=== PATIENT | female | born 1950 | race Caucasian/White ===

== ENCOUNTER 2016-11-18 08:33 | Emergency (ER) | payer BC ==
[~2016-11-18] VITALS: Ht 154.9 cm; Wt 70.0 kg
[~2016-11-18 08:33] MED LIST: AMLODIPINE5 MG PO; CLOPIDOGREL75 MG PO; HYDRALAZINE25 MG PO; HYDROCO/APAP1 TA9 PO; LOSARTAN/HCT1 TA2 PO; PAROXETINE20 MG PO; PRAVACHOL20 MG PO; TRAMADOL HCL50 MG PO; VITAMIN D35000 UNIT PO
[2016-11-18 09:00] LABS: HEMATOCRIT 42.7 % (37.0-47.0); HEMOGLOBIN 14.4 g/dl (12.0-16.0); IMMATURE GRANULOCYTES 0.4 % (0.0-1.0); MEAN CORPUSCULAR HGB 32.4 pG CALC (26.0-32.0); MEAN CORPUSCULAR HGB CONC 33.7 g/L CALC (32.0-36.0); NEUT# 9.41 thou/uL (2.00-7.15); RED BLOOD COUNT 4.45 mill/uL (4.20-5.60)
[2016-11-18 09:15] LABS: ALBUMIN 4.4 g/dL (3.2-5.0); ALKALINE PHOSPHATASE 74 u/l (38-126); ANION GAP 16 (6-22 (CALC)); BILIRUBIN, TOTAL 0.7 mg/dL (0.0-1.4); BUN 22 mg/dL (8-23); BUN/CREATININE RATIO 19 (12-20 (CALC)); CALCIUM 9.4 mg/dL (8.4-10.2); CARBON DIOXIDE 23 mmol/l (22-30); CHLORIDE 104 mmol/l (95-108); CREATININE 1.1 mg/dL (0.5-1.0); GFR 50 ML/MIN (>=60 (CALC)); GFR FOR AFR.AMER. > 60 ML/MIN (>=60 (CALC)); GLUCOSE 197 mg/dL (82-115); POTASSIUM 3.7 mmol/l (3.5-5.1); SGOT/AST 41 u/l (9-36); SGPT/ALT 30 u/l (11-66); SODIUM 140 mmol/l (137-146); TOTAL PROTEIN 7.7 g/dL (6.3-8.2)
[2016-11-18 09:25] LABS: MYOGLOBIN 44 ng/mL (0 - 62)
[2016-11-18 10:23] LABS: URINE BILIRUBIN - DIPSTICK NEGATIVE (NEGATIVE); URINE BLOOD DIPSTICK NEGATIVE (NEGATIVE); URINE CLARITY CLEAR; URINE COLOR YELLOW; URINE GLUCOSE - DIPSTICK NEGATIVE (NEGATIVE); URINE KETONE NEGATIVE (NEGATIVE); URINE NITRITE - DIPSTICK NEGATIVE (Negative); URINE PH 6.5 (4.5-8.0); URINE PROTEIN - DIPSTICK 30 mg/dL (NEG-TRACE); URINE SPECIFIC GRAVITY 1.015; URINE UROBILINOGEN - DIPSTICK 0.2 E.U./dL (0.2)
[2016-11-18 10:27] LABS: URINE LEUK ESTERASE SMALL (NEGATIVE)
[2016-11-18 10:38] LABS: URINE SQUAMOUS EPITHELIAL CELL FEW EPI/hpf (0-FEW)
[2016-11-18 11:12] VITALS: BP 161/67
[2016-11-18] MEDS ORDERED: BACTRIM DS1 TAB PO (11:15)
== END 2016-11-18 11:24 | disposition left against medical advice (07) | DRG 313 ==
LOC: ED 08:33
PROVIDERS: Emergency Medicine
DX: R07.9 Chest pain, unspecified (principal); I10 Essential (primary) hypertension; N39.0 Urinary tract infection, site not specified; M19.90 Unspecified osteoarthritis, unspecified site; J44.9 Chronic obstructive pulmonary disease, unspecified; E78.00 Pure hypercholesterolemia, unspecified; Z86.73 Personal history of transient ischemic attack (TIA), and cerebral infarction without residual deficits; Z91.19 Patient's noncompliance with other medical treatment and regimen

== ENCOUNTER 2017-11-26 14:52 | Inpatient (IN) | payer BC, MEDICARE ==
[~2017-11-26] VITALS: Ht 152.4 cm; Wt 71.7 kg
[~2017-11-26 14:52] MED LIST changes: +AMITRIPTYLIN25 MG PO; +BACTRIM DS1 TAB PO; +PAROXETINE40 MG PO; +PRAVASTATIN SOD40 MG PO; +TRAMADOL HYDROC50 MG PO; +VITAMIN D32000 UNIT PO
[2017-11-29] VITALS (9 sets, daily range): BP systolic 116–150; BP diastolic 47–86
--- NOTE | 2017-11-29 11:15 | NUR ---
PT ARRIVED TO FLOOR VIA HOSPITAL BED IN STABLE CONDITION ACCOMPANIED BY OR STAFF;INTRODUCED SELF TO PT/FAMILY AND POC DISCUSSED;VS OBTAINED AND ASSESSMENT COMPLETED;PT ALERT BUT VERY DROWSY AT THIS TIME,WAKES TO VERBAL STIMULI;RESPIRATIONS EVEN AND UNLABORED,SHALLOW ON OXYGEN @ 3L VIA NC PER MD ORDERS;ENCOURAGED DEEP BREATHING;I.S. AT BEDSIDE AND GOAL SET TO 1500,PT INSTRUCTED TO USE 10X PER HOUR WHILE AWAKE;PT DEMONSTRATED USE;ABDOMEN SOFT ON PALPATION AND HYPOACTIVE IN ALL 4 QUADRANTS;STRONG PEDAL PULSES WITH LESS THAN 3SEC CAP REFILL;SCD PLACED TO LEFT LEG;DRESSING TO RIGHT KNEE CDI AND ICE PACKS PROVIDED;RIGHT SIDED WEAKNESS NOTED FROM HX OF STROKE 2 YEARS AGO;#20G TO LEFT HAND INFUSING NS @ 100ML/HR,SITE APPEARS HEALTHY;LAST BM 11/28/17; PT DENIES ANY CURRENT NEEDS;ICE CHIPS PROVIDED PER REQUEST;SAFETY PRECAUTIONS REINFORCED WITH BED IN THE LOWEST POSITION;CALL LIGHT IN REACH;WILL CONTINUE TO MONITOR
--- NOTE | 2017-11-29 12:50 | NUR ---
PT MEDICATED WITH PERCOCET 10/325MG 2 COMBO PO FOR RIGHT KNEE PAIN RATING 5/10 ON THE PAIN SCALE,WILL MONITOR FOR EFFECTIVENESS
--- NOTE | 2017-11-29 15:05 | NUR ---
PT COMPLAINS OF RIGHT KNEE PAIN RATING 10/10 ON THE PAIN SCALE;PT MEDICATED WITH DILAUDID 1MG IVP AT THIS TIME;RE-POSITIONED,ICE PACKS PROVIDED AND KNEE ELEVATED;IV SITE PATENT INFUSING @ 100ML/HR;I.S. ENCOURAGED AND PT VERBALIZES UNDERSTANDING;CALL LIGHT IN REACH;WILL CONTINUE TO MONITOR
--- NOTE | 2017-11-29 15:20 | NUR ---
PT MEDICATED WITH ZOFRAN 4MG IVP FOR NAUSEA,EMESIS BAGS PROVIDED;WILL CONTINUE [facility]
--- NOTE | 2017-11-29 20:00 | NUR ---
PATIENT RESTING IN BED AT THIS TIME-AWAKE ALERT AND ORIENTED. PATIENT WITH IV SITE TO LEFT HAND WITH IVF NS PATENT AND INFUSING AT 100CC/HR. SITE APPEARS HEALTHY AT THIS TIME. RIGHT KNEE DRESSING INTACT AND SECURED WITH RAMO WRAP. ENCOURAGED USE OF IS Q1H WHILE AWAKE. ABLE TO DEMONSTRATE CORRECT USE OF DEVICE.USING ICE PACK TO RIGHT INT INTERMITANTLY. MEDICATED FOR POST-OP PAIN WITH DILAUDID 1MG IVP WITH GOOD EFFECT. SAFETY PRECAUTIONS REINFORCED. CALL LIGHT IN REACH. WILL CONT TO MONITOR.
--- NOTE | 2017-11-29 23:00 | NUR ---
PATIENT HAS BEEN UNABLE TO VOID SINCE COMING BACK FROM THE OR. ASSISTED PATIENT OOB TO THE BSC AND STILL UNABLE TO VOID. BACK TO BED AND #16 SERBIAN GUERRA INSERTED AND DRAINING CLEAR AMA URINE. MEDICATED FOR POST-OP PAIN WITH DILAUDID. SAFETY PRECAUTIONS REINFORCED. CALL LIGHT IN REACH. WILL CONT TO MONITOR.
--- NOTE | 2017-11-30 03:11 | NUR ---
PATIENT RESTING IN BED-C/O SEVERE POST-OP RIGHT KNEE PAIN. MEDICATED WITH DILAUDID 1MG IVP FOR PAIN. ANCEF INFUSING ORDERED. CALL LIGHT IN REACH. WILL CONT TO MONITOR,
[2017-11-30 05:02] VITALS: BP 152/70
[2017-11-30 05:32] LABS: IMMATURE GRANULOCYTES 0.5 % (0.0-1.0); MEAN CELL VOLUME 101.5 fL CALC (80.0-100.0); MEAN CORPUSCULAR HGB 32.3 pG CALC (26.0-32.0); MEAN CORPUSCULAR HGB CONC 31.8 g/L CALC (32.0-36.0); NEUT# 12.69 thou/uL (2.00-7.15); RED BLOOD COUNT 3.28 mill/uL (4.20-5.60); RED CELL DISTRI WIDTH 12.6 % (11.5-15.5)
[2017-11-30 05:48] LABS: ANION GAP 16 (6-22 (CALC)); BUN 18 mg/dL (8-23); BUN/CREATININE RATIO 23 (12-20 (CALC)); CARBON DIOXIDE 25 mmol/l (22-30); CHLORIDE 102 mmol/l (95-108); CREATININE 0.8 mg/dL (0.5-1.0); GFR > 60 ML/MIN (>=60 (CALC)); GFR FOR AFR.AMER. > 60 ML/MIN (>=60 (CALC)); MAGNESIUM 1.7 mg/dL (1.6-2.3); POTASSIUM 3.8 mmol/l (3.5-5.1); SODIUM 139 mmol/l (137-146)
[2017-11-30 05:49] LABS: HEMATOCRIT 33.3 % (37.0-47.0); HEMOGLOBIN 10.6 g/dl (12.0-16.0)
--- NOTE | 2017-11-30 07:35 | NUR ---
REPORT RECEIVED FROM HERMINIA DE LA CRUZ;INTRODUCED SELF TO PT AND POC DISCUSSED;PT COMPLAINS OF RIGHT KNEE PAIN AND REQUESTS PAIN MEDICATION;PT TO BE MEDICATED ACCORDING TO MD ORDERS;RESPIRATIONS REMAIN EVEN AND UNLABORED ON O2 @ 3L VIA NC;FALL PRECAUTIONS IN PLACE WITH CALL LIGHT IN REACH;WILL CONTINUE TO MONITOR
--- NOTE | 2017-11-30 08:00 | NUR ---
PT RESTING IN SEMI FOWLERS POSITION COMPLAINING OF RIGHT KNEE PAIN RATING 9/10 ON THE PAIN SCALE AND REQUESTING PAIN MEDICATION;PT MEDICATED WITH PRN PERCOCET 10/325MG PO 2 COMBO,WILL MONITOR FOR EFFECT;VS OBTAINED AND ASSESSMENT COMPLETED;RESPIRATIONS EVEN AND UNLABORED ON RA,WHEEZES NOTED;ABDOMEN SOFT ON PALPATION AND HYPOACTIVE IN ALL 4 QUADRANTS;DRESSING TO RIGHT KNEE REMAINS CDI,ICE PACKS ENCOURAGED;I.S. AT BEDSIDE AND GOAL SET TO 1500;#20G TO LEFT HAND INFUSING NS @ 100ML/HR,SITE APPEARS HEALTHY;GUERRA CATHETER PATENT DRAINING YELLOW URINE,LEG STRAP IN PLACE;ALL SAFETY PRECAUTIONS REINFORCED WITH BED IN THE LOWEST POSITION;ENCOURAGED TO CALL FOR ASSISTANCE IF NEEDED;CALL LIGHT IN REACH;WILL CONTINUE TO MONITOR
[2017-11-30 08:04] VITALS: BP 175/74
--- NOTE | 2017-11-30 10:56 | NUR ---
PATIENT SEEN FOR AM TX. SHE IS REQUESTING PAIN INJECTION DUE TO 9/10 PAIN. NSG REPORTS HAVING JUST MEDICATED PATIENT WITH ORAL MEDS. PATIENT ENCOURAGED TO PARTICIPATE IN THERAPY AND GET OOB TO CHAIR. PATIENT ABLE TO MOVE LATERALLY IN BED WITH LIGHT SUPPORT AT R LE. SUPINE TO SIT WITH MIN A AT R LEG AND SUPERVISOR PIGMENT MAKING OF 1. SIT TO STAND WITH V.C.'S TO STANDARD WALKER. PATIENT AMB WBAT R LE WITH IMPROVED STEP LENGTH AND INCREASED TOLERANCE TO WB'G R LE 8 FEET TO CHAIR. ABLE TO SCOOT HERSELF BACK IN CHAIR WITH LEFT LE AND BILAT UE'S. INSTRUCTED IN AROM OF KNEE IN SITTING APPROX 20-70 DEGREES FLXN ACTIVELY. LEGS ELEVATED AND PATIENT INSTRUCTED IN QUAD SETS AND ANKLE PUMPS. ENCOURAGED TO CONSIDER SHORT TERM INPATIENT REHAB SHE LIVES ALONE AND WISHES TO TRAVEL [facility].
--- NOTE | 2017-11-30 11:15 | NUR ---
PT REPORTS PERCOCET TO BE UNEFFECTIVE TOWARDS PAIN CONTROL AND NEW ORDER RECEIVED;PT MEDICATED WITH PRN DILAUDID 2MG PO AT THIS TIME,WILL CONTINUE TO MONITOR
[2017-11-30 12:00] VITALS: BP 139/46
--- NOTE | 2017-11-30 12:20 | NUR ---
PT APPEARS TO BE SLEEPING IN RECLINER;NO S/S OF DISTRESS NOTED;RESPIRATIONS APPEAR EVEN AND UNLABORED ON RA;IV SITE PATENT INFUSING @ 100ML/HR;FALL PRECAUTIONS IN PLACE WITH CALL LIGHT IN REACH;WILL CONTINUE TO MONITOR
--- NOTE | 2017-11-30 13:10 | NUR ---
PT REPORTS NO PAIN RELIEF TO RIGHT KNEE FROM DILAUDID 2MG PO,JESSIE FIGUEROA,ANRP NOTIFIED
[2017-11-30 13:17] LABS: URINE BILIRUBIN - DIPSTICK NEGATIVE (NEGATIVE); URINE BLOOD DIPSTICK LARGE (NEGATIVE); URINE GLUCOSE - DIPSTICK NEGATIVE (NEGATIVE); URINE KETONE NEGATIVE (NEGATIVE); URINE LEUK ESTERASE NEGATIVE (NEGATIVE); URINE NITRITE - DIPSTICK NEGATIVE (Negative); URINE PROTEIN - DIPSTICK NEGATIVE (NEG-TRACE); URINE SPECIFIC GRAVITY 1.015; URINE UROBILINOGEN - DIPSTICK 0.2 E.U./dL (0.2)
[2017-11-30 13:18] LABS: URINE CLARITY HAZY; URINE COLOR DK. YELLOW
[2017-11-30 13:19] LABS: URINE EPITHELIAL CELLS FEW EPI/hpf (0-FEW); URINE RBC 25-50 RBC/hpf (0-5)
--- NOTE | 2017-11-30 14:35 | NUR ---
Pt seen for ther ex and mobility. She was resting in bed but did cooperate with treatment. A/AROM to RLE in supine and sitting. Pt moved supine to sit with SBA, min assist with RLE only. Sit to stand with CGA. Pt ambulated with standard walker 1x 30' with CGA, gait belt in place and non skid socks on. Sit to supine with assist of RLE. Pt was positioned correctly in bed with call bah in reach, heels off loaded. Pt encouraged to do AROM as tolerated in bed and when sitting.
[2017-11-30 14:37] VITALS: BP 154/59
--- NOTE | 2017-11-30 14:40 | NUR ---
PT RESTING IN SEMI FOWLERS POSITION COMPLAINING OF RIGHT KNEE PAIN AND BURNING (9/10) ON THE PAIN SCALE;PT MEDICATED WITH TORADOL 15MG IVP AND DRESSING REMOVED PER REQUEST,PT TOLERATED WELL;IV SITE PATENT INFUSING @ 100ML/HR;GUERRA CATHETER PATENT DRAINING TO GRAVITY;ENCOURAGED TO CALL FOR ASSISTANCE IF NEEDED;CALL LIGHT IN REACH;WILL CONTINUE TO MONITOR
[2017-11-30 16:00] VITALS: BP 148/70
--- NOTE | 2017-11-30 16:00 | NUR ---
PT CURRENT TEMP 100.0,BLANKETS REMOVED AND AC LOWERED;WILL CONTINUE TO MONITOR
--- NOTE | 2017-11-30 17:05 | NUR ---
PT MEDICATED WITH DILAUDID 4MG PO FOR RIGHT KNEE PAIN RATING 9/10 ON THE PAIN SCALE,WILL MONITOR FOR EFFECT
--- NOTE | 2017-11-30 17:15 | NUR ---
PT MEDICATED WITH PRN TYLENOL 650MG PO FOR TEMP OF 100.1,WILL MONITOR FOR EFFECTIVENESS
--- NOTE | 2017-11-30 19:30 | NUR ---
PATIENT RESTING IN BED WITH O2 VIA NASAL CANNULA IN PLACE AT 2LPM. PATIENT AWAKE ALERT WITH SOME POST-OP PAIN TO RIGHT KNEE. RIGHT KNEE INCISION IS INTACT INDIRA, WELL APPROXIMATED. CONT TO USE INTERMITTANT ICE PACKS FOR SWELLING AND COMFORT. IV SITE TO LEFT HAND INTACT WITH IVF NS PATENT AND INFUSING AT 100CC/HR. SITE APPEARS HEALTHY AT THIS TIME. GUERRA PATENT AND DRAINING YELLOW URINE. STILL NOT EATING MUCH-TAKING SIPS OF FLUIDS AND ICE CHIPS. SAFETY PRECAUTIONS REINFORCED. CALL LIGHT IN REACH. WILL CONT TO MONITOR.
[2017-11-30 20:21] VITALS: BP 142/52
--- NOTE | 2017-12-01 01:20 | NUR ---
PATIENT APPEARS SLEEPING AT THIS TIME MWITH EYES CLOSED AND O2 VIA NASAL CANNULA IN PLACE, IVF PATENT AND INFUSING AT 100CC/HR. PATIENT STILL NOT EATING OR DRINKING MUCH. GUERRA PATENT AND DRAINING YELLOW URINE. CALL LIGHT IN REACH. WILL CONT TO MONITOR.
[2017-12-01 02:56] VITALS: BP 135/63
[2017-12-01 04:59] VITALS: BP 134/64
[2017-12-01 05:01] LABS: ANION GAP 13 (6-22 (CALC)); BUN 13 mg/dL (8-23); BUN/CREATININE RATIO 16 (12-20 (CALC)); CARBON DIOXIDE 25 mmol/l (22-30); CHLORIDE 104 mmol/l (95-108); CREATININE 0.8 mg/dL (0.5-1.0); GFR > 60 ML/MIN (>=60 (CALC)); GFR FOR AFR.AMER. > 60 ML/MIN (>=60 (CALC)); MAGNESIUM 1.9 mg/dL (1.6-2.3); POTASSIUM 3.5 mmol/l (3.5-5.1); SODIUM 138 mmol/l (137-146)
[2017-12-01 05:26] LABS: HEMOGLOBIN 9.4 g/dl (12.0-16.0); IMMATURE GRANULOCYTES 0.4 % (0.0-1.0); MEAN CELL VOLUME 101.4 fL CALC (80.0-100.0); MEAN CORPUSCULAR HGB 32.9 pG CALC (26.0-32.0); MEAN CORPUSCULAR HGB CONC 32.4 g/L CALC (32.0-36.0); NEUT# 8.36 thou/uL (2.00-7.15); RED BLOOD COUNT 2.86 mill/uL (4.20-5.60); RED CELL DISTRI WIDTH 12.5 % (11.5-15.5)
--- NOTE | 2017-12-01 05:31 | NUR ---
APPEARS SLEEPING AT THIS TIME. O2 VIA N STEPHY CANNULA IN PLACE. IVF PATENT ST 100CC/HR. GUERRA PATENT AND DRAINING YELLOW URINE. CALL LIGHT IN REACH. WILL CONT TO MONITOR.
--- NOTE | 2017-12-01 06:19 | NUR ---
CHARLIE BOTELLO D/C'ED WITHOUT ANY DIFFICULTY. NO COMPLAINTS AT THIS TIME. CALL LIGHT IN REACH. MUCH BETTER PAIN CONTROL TONIGHT. WILL CONT TO MONITOR.
--- NOTE | 2017-12-01 07:00 | NUR ---
REPORT RECEIVED SHENNY. PT IS RESTING IN BED WITH NO S/S OF DISTRESS NOTED. PT DENIES NEEDS AT THIS TIME. CALL LIGHT IN REACH.
--- NOTE | 2017-12-01 07:00 | NUR ---
BEDSIDE REPORT RECEIVED BY INDIO. PT IS RESTING IN BED WITH NO NO S/S OF DISTRESS NOTED. CALL LIGHT IN REACH.
[2017-12-01 08:00] VITALS: BP 146/69
--- NOTE | 2017-12-01 08:00 | NUR ---
ASSESSMENT DONE . RESPS EVEN AND UNLABORED. PT DENIES PAIN AT THIS TIME. #20 LH THAT APPEARS HEALTHY. POC DISCUSSES . SAFETY PRECAUTIONS REINFORCED AND CALL LIGHT IN REACH.
--- NOTE | 2017-12-01 09:53 | NUR ---
Pt. found resting in bed, treatment plan explained. Pt. agreeable to participate in gait training, gait belt and non skid socks applied prior to doing so. Supine to sit with min. assist x1 to R LE. Sit to stand done with v.c.'s for UE push off from bed and with CGA x1. Pt. ambulated x 30 ft. using standard walker and with CGA x1. Pt. walked toward recliner and recalled to use UE's to slowly lower onto recliner. LE's elevated, call light reviewed and left within reach. Pt. without questions or concerns.
[2017-12-01 12:00] VITALS: BP 126/62
--- NOTE | 2017-12-01 12:00 | NUR ---
PT IS EATING LUNCH WITH NO S/S OF DISTRESS NOTED. PT DENIES NEEDS AT THIS TIME. CALL LIGHT IN REACH.
--- NOTE | 2017-12-01 13:54 | NUR ---
PM TX: PT WAS SEEN RESTING SUPINE ON BED. DID SUPINE TO SIT INDEPENDENTLY, LIFTED R LE OFF ON EDGE OF BED. PT THEN AMBULATED BEDSIDE WITH A WALKER AND CGA ~20 FT. PT SAT ON THE RECLINER THEN STOOD UP WITH VERBAL CUEING. PT THEN RETURNED TO BED IN SUPINE WITH MIN A ON LIFTING R LE BACK ON BED. PT C/O PAIN ON R KNEE UPON MOVEMENT. PT WAS ABLE TO REPOSITION SELF ON BED INDEPENDENTLY. NO ADVERSE RXNS NOTED OR REPORTED AT THE END OF TX.
[2017-12-01 16:38] VITALS: BP 169/59
--- NOTE | 2017-12-01 19:20 | NUR ---
OOB TO BSC WITH MINIMAL ASSISTNACE USING WALKER, VOIDING CLEAR YELLOW URINE THEN BACK TO BED. POST OP RIGHT KNEE REPLACEMENT. RIGHT KNEE DERMABOND OPEN TO AIR, ADMITS PAIN 3/10 DENIES NEED FOR PAIN MEDS. A/O X3, RESPIRATIONS EVEN AND UNLABORED. NS INFUSING TO LH AT 50CC/HR. PO FLUIDS IN REACH, ENCOURAGED TO USE CALL LIGHT FOR ASSISTANCE, TEACHING DONE ON USING INCENTIVE SPIROMETER, DEMONSTRATES ABILITY TO USE IT. WILL CONTINUE TO MONITOR.
[2017-12-01 19:40] VITALS: BP 147/93
--- NOTE | 2017-12-01 23:57 | NUR ---
TEMP 100.0, TYLENOL 650MG PO GIVEN AT THIS TIME, WILL CONTINUE TO MONITOR.
--- NOTE | 2017-12-02 01:00 | NUR ---
TEMP 99.0
--- NOTE | 2017-12-02 04:40 | NUR ---
MORNING BLOOD WORK DRAWN BY CALENDER TENDER, TOLERATED WELL.
[2017-12-02 05:07] VITALS: BP 133/68
[2017-12-02 05:32] LABS: HEMATOCRIT 24.3 % (37.0-47.0); HEMOGLOBIN 7.9 g/dl (12.0-16.0)
[2017-12-02 05:50] LABS: ANION GAP 14 (6-22 (CALC)); BUN 18 mg/dL (8-23); BUN/CREATININE RATIO 25 (12-20 (CALC)); CARBON DIOXIDE 23 mmol/l (22-30); CHLORIDE 107 mmol/l (95-108); CREATININE 0.7 mg/dL (0.5-1.0); GFR > 60 ML/MIN (>=60 (CALC)); GFR FOR AFR.AMER. > 60 ML/MIN (>=60 (CALC)); POTASSIUM 3.4 mmol/l (3.5-5.1); SODIUM 140 mmol/l (137-146)
--- NOTE | 2017-12-02 07:01 | NUR ---
BEDSIDE REPORT RECEIVED BY HARRIS. PT IS RESTING IN BED AND DENIES NEEDS AT THIS TIME. CALL LIGHT IN REACH.
--- NOTE | 2017-12-02 08:00 | NUR ---
ASSESSMENT DONE RESPS EVEN AND UNLABORED. PT DENIES PAIN AT AT THIS TIME. RIGHT KNEE IS ICDI. PT DENIES NEEDS AT THIS TIME. CALL LIGHT IN REACH. SAFETY PRECAUTIONS REINFORCED.
[2017-12-02 08:45] VITALS: BP 148/59
--- NOTE | 2017-12-02 09:10 | NUR ---
PT DID SUPINE TO SITTING WITH MOD ASSIST, ALSO PROVIDED VERBAL CUES TO SLIDE, SCOOT AND HOLD ONTO THE BED RAIL TO PULL SELF UP. PT THEN PERFORMED AAROM EX. ON B UE AND LE. PASSIVE STRETCHING WAS DONE TO R UE AND LE WHILE IN SITTING POSITION. PT C/O PAIN ALL OVER HER BODY AND WAS REQUESTING FOR PAIN MEDS. NURSE TOLD HER THAT SHE JUST HAD IT NOT A WHILE AGO. PT WAS THEN ASSISTED BACK TO SUPINE ON BED WITH MOD A AND VC, PLACED 2 PILLOWS UNDER R LE. LEFT PT W/ CALL BROWN BESIDE HER. NO ADVERSE RXNS NOTED OR REPORTED.
--- NOTE | 2017-12-02 09:19 | NUR ---
PT PERFORMED SIT TO STAND INDEPENDENTLY. ASSISTED FROM BED TO BATHROOM WITH ROLLING WALKER AND SBA. PT THEN AMBULATED ALONG THE HALLWAY ~70FT. X 2 WITH RW AND SBA. PT REQUESTED TO BE SEATED IN THE RECLINER. ELEVATED LEG REST WITH PILLOW UNDER HER LEGS. CALL BROWN BESIDE PT. NO ADVERSE RXNS NOTED OR REPORTED AT THE END OF TX.
--- NOTE | 2017-12-02 10:05 | NUR ---
PT WAS ASSISTED TO SHOWER WITH WALKER. PT AMBULATED VERY WELL. PT BATHED SELF IN SHOWER. AIRCRAFT SHEET METAL MECHANIC CHANGED BED AND CHAIR WHILE PT IN SHOWER. PT TOLERATED THE SHOWER WELL. PT THEN AMBULATED BACK TO CHAIR WITH ASSISTANCE FROM WALKER. AIRCRAFT SHEET METAL MECHANIC WAS STAND BY ASSIST WHILE WALKING. PT WAS ASKED IF AIRCRAFT SHEET METAL MECHANIC COULD GET HER ANYTHING AT THIS TIME. AIRCRAFT SHEET METAL MECHANIC BROUGHT ICE FOR HER KNEE. PLACED ON KNEE AT THIS TIME. NO COMPLAINTS. PT WAS ADVISED TO CALL FOR ANYTHING SHE NEEDED. PT UNDERSTOOD. CALL BROWN IN REACH.
[2017-12-02 11:35] VITALS: BP 146/61
--- NOTE | 2017-12-02 12:00 | NUR ---
PT IS SITTING IN RECLINER EATING HER LUNCH WITH NO S/S OF DISTRESS NOTED. PT DENIES NEEDS AT THIS TIME CALL LIGHT IN REACH.
[2017-12-02] MEDS ORDERED: SURFAK240 MG/CAP PO (12:34)
[2017-12-02] MEDS ORDERED: GLYCOLAX3350 N1 PO (12:34)
[2017-12-02] MEDS ORDERED: PERCOCET 10/31 COMBO PO (12:34)
[2017-12-02] MEDS ORDERED: ASPIRIN 8181 MG PO (12:34)
--- NOTE | 2017-12-02 13:28 | NUR ---
PT AMBULATED FROM CHAIR TO BATHROOM WITH RW AND SBA. THEN AMBULATED ALONG THE HALLWAY ~60 FT. X 2 WITH RW AND SBA TO ENSURE SAFETY. PT APPEARED STABLE DURING THE AMBULATION. STATES ONLY MILD DISCOMFORT ON R KNEE. PT RETURNED TO BED IN SUPINE WITH MIN A ON LIFTING R LE UP TO BED. NO ADVERSE RXNS NOTED OR REPORTED AT THE END OF TX.
--- NOTE | 2017-12-02 14:41 | NUR ---
Discharge instructions given. Patient verbalizes understanding of same. Discharged in stable condition via Wheelchair to Home with volunteer. All belongings sent with pt.
== END 2017-12-02 14:41 | disposition home health service (06) | DRG 470 ==
LOC: MS2 11-29 06:04
PROVIDERS: Nurse Practitioner Family; ADMIT Orthopaedic Surgery; ATTEND Orthopaedic Surgery
PROC: 0SRC0J9 Replacement of Right Knee Joint with Synthetic Substitute, Cemented, Open Approach (ICD-10-PCS; principal; 2017-11-29)
DX: M17.11 Unilateral primary osteoarthritis, right knee (principal); J44.9 Chronic obstructive pulmonary disease, unspecified; E78.5 Hyperlipidemia, unspecified; F17.210 Nicotine dependence, cigarettes, uncomplicated; D50.9 Iron deficiency anemia, unspecified; E87.6 Hypokalemia; I10 Essential (primary) hypertension; Z86.73 Personal history of transient ischemic attack (TIA), and cerebral infarction without residual deficits
CPT/HCPCS: J1756

== ENCOUNTER → 2018-03-31 | Outpatient (REF) | payer BC, MEDICARE ==
[~2018-03-31] MED LIST changes: +ASPIRIN 8181 MG PO; +GLYCOLAX3350 N1 PO; +PERCOCET 10/31 COMBO PO; +SURFAK240 MG/CAP PO
== END | disposition home or self-care (01) | DRG 951 ==
LOC: MAMMO 13:57
PROVIDERS: ATTEND Nurse Practitioner
DX: Z12.31 Encounter for screening mammogram for malignant neoplasm of breast (principal); N95.1 Menopausal and female climacteric states

== ENCOUNTER 2024-02-25 10:37 | Day surgery (SDC) | payer BC, MEDICARE ==
[~2024-02-25] VITALS: Ht 154.9 cm; Wt 66.2 kg
[~2024-02-25 10:37] MED LIST changes: +CLEOCIN150 MG PO; +JANUVIA50 MG PO; +LIPITOR40 M1 PO; +MOBIC15 MG PO; +OMEPRAZOLE DR20 MG PO
[2024-02-25] MEDS ORDERED: SODIUM CHLORIDE 0.9% 1,000 ML IV ONE (11:20)
[2024-02-25] MEDS ORDERED: FAMOTIDINE 10MG/ML 2ML SDV IV ONE (11:20)
[2024-02-25 12:40] VITALS: BP 175/77
[2024-02-25] MEDS ORDERED: GLYCOPYRROLATE 0.2 MG/ML IV ONE (15:06)
[2024-02-25] MEDS ORDERED: PROPOFOL 200 MG/20 ML VIAL IV ONE (15:06)
[2024-02-25] MEDS ORDERED: LABETALOL HCL 100 MG/20 ML VIAL IV ONE (15:06)
[2024-02-25] MEDS ORDERED: LIDOCAINE HCL 2% 2ML SDV IV ONE (15:06)
== END 2024-02-25 12:59 | disposition home or self-care (01) | DRG 379 ==
LOC: ENDO 10:37 → ORM 11:45 → ENDO 12:59 → ORM 13:00 → ENDO 14:15 → ORM 14:15
PROVIDERS: ATTEND Internal Medicine Gastroenterology
PROC: 0DBK8ZX Excision of Ascending Colon, Via Natural or Artificial Opening Endoscopic, Diagnostic (ICD-10-PCS; principal; 2024-02-25)
PROC: 0DBL8ZX Excision of Transverse Colon, Via Natural or Artificial Opening Endoscopic, Diagnostic (ICD-10-PCS; 2024-02-25)
PROC: 0DBH8ZX Excision of Cecum, Via Natural or Artificial Opening Endoscopic, Diagnostic (ICD-10-PCS; 2024-02-25)
PROC: 0DB98ZX Excision of Duodenum, Via Natural or Artificial Opening Endoscopic, Diagnostic (ICD-10-PCS; 2024-02-25)
PROC: 0DB78ZX Excision of Stomach, Pylorus, Via Natural or Artificial Opening Endoscopic, Diagnostic (ICD-10-PCS; 2024-02-25)
PROC: 0DB48ZX Excision of Esophagogastric Junction, Via Natural or Artificial Opening Endoscopic, Diagnostic (ICD-10-PCS; 2024-02-25)
DX: K29.51 Unspecified chronic gastritis with bleeding (principal); K29.81 Duodenitis with bleeding; K44.9 Diaphragmatic hernia without obstruction or gangrene; K22.2 Esophageal obstruction; D12.2 Benign neoplasm of ascending colon; D12.0 Benign neoplasm of cecum; D12.3 Benign neoplasm of transverse colon; K64.8 Other hemorrhoids; K21.9 Gastro-esophageal reflux disease without esophagitis; K59.09 Other constipation; I10 Essential (primary) hypertension; D64.9 Anemia, unspecified; F17.210 Nicotine dependence, cigarettes, uncomplicated; Z86.010 Personal history of colon polyps

== ENCOUNTER 2024-06-26 10:48 | Day surgery (SDC) | payer BC, MEDICARE ==
[~2024-06-26] VITALS: Ht 154.9 cm; Wt 66.2 kg
[~2024-06-26 10:48] MED LIST changes: +APRESOLINE50 MG PO; -HYDRALAZINE25 MG PO; +PROTONIX40 M2 PO
[2024-06-26] MEDS ORDERED: ceFAZolin Sodium 2 GM/VIAL SDV ONE (11:19)
[2024-06-26] MEDS ORDERED: FAMOTIDINE 10MG/ML 2ML SDV IV ONE (11:19)
[2024-06-26] MEDS ORDERED: SODIUM CHLORIDE 0.9% 100 ML IV ONE (11:20)
[2024-06-26] MEDS ORDERED: SODIUM CHLORIDE 0.9% 1,000 ML IV ONE (11:20)
[2024-06-26 11:44] LABS: CREATININE 2.1 mg/dL (0.5-1.0); POTASSIUM 3.8 mmol/l (3.5-5.1)
[2024-06-26] MEDS ORDERED: BUPIVACAINE 133 MG/10 ML VIAL IJ ONE (12:00)
[2024-06-26] MEDS ORDERED: BUPIVACAINE HCL 0.25% 25 MG/10 ML SDV ONE (12:00)
[2024-06-26] MEDS ORDERED: SODIUM CHLORIDE 1,000 ML BTL IR ONE (12:00)
[2024-06-26] MEDS ORDERED: STERILE WATER FOR IRRIGATION 1,000 ML BTL IR ONE (12:00)
[2024-06-26] MEDS ORDERED: SODIUM CHLORIDE 20 ML/VIAL SDV ONE (12:04)
[2024-06-26] MEDS ORDERED: PERCOCET 5/325M1 TAB PO (13:00)
[2024-06-26 14:05] VITALS: BP 130/59
[2024-06-26] MEDS ORDERED: SODIUM CHLORIDE 0.9% 1,000 ML BAG IV ONE (15:07)
[2024-06-26] MEDS ORDERED: PHENYLEPHRINE HCL 10 MG/ML VIAL IV ONE (15:07)
[2024-06-26] MEDS ORDERED: PROPOFOL 200 MG/20 ML VIAL IV ONE (15:07)
[2024-06-26] MEDS ORDERED: ONDANSETRON HCl 4 MG/2 ML SDV IV ONE (15:07)
[2024-06-26] MEDS ORDERED: LIDOCAINE HCL 2% 2ML SDV IV ONE (15:07)
== END 2024-06-26 14:14 | disposition home or self-care (01) | DRG 349 ==
LOC: ORM 10:48
PROVIDERS: ATTEND Surgery
PROC: 06BY3ZC Excision of Hemorrhoidal Plexus, Percutaneous Approach (ICD-10-PCS; principal; 2024-06-26)
PROC: 0DBQ3ZX Excision of Anus, Percutaneous Approach, Diagnostic (ICD-10-PCS; 2024-06-26)
DX: K64.2 Third degree hemorrhoids (principal); K62.89 Other specified diseases of anus and rectum; I12.9 Hypertensive chronic kidney disease with stage 1 through stage 4 chronic kidney disease, or unspecified chronic kidney disease; E11.22 Type 2 diabetes mellitus with diabetic chronic kidney disease; N18.9 Chronic kidney disease, unspecified; E78.5 Hyperlipidemia, unspecified; F32.A Depression, unspecified; F41.9 Anxiety disorder, unspecified; F17.200 Nicotine dependence, unspecified, uncomplicated
CPT/HCPCS: C9290; J0690; J2405

== ENCOUNTER 2024-09-09 18:36 | Emergency (ER) | payer BC, MEDICARE ==
[~2024-09-09] VITALS: Ht 154.9 cm; Wt 65.5 kg
[2024-09-09] VITALS (14 sets, daily range): BP systolic 109–150; BP diastolic 49–73
[~2024-09-09 18:36] MED LIST changes: +PERCOCET 5/325M1 TAB PO
[2024-09-09] MEDS ORDERED: ALBUTEROL SULFATE 2.5 MG VIAL IN ONE (18:50)
[2024-09-09] MEDS ORDERED: IPRATROPIUM-Albuterol 0.5MG-2.5MG/3 ML NEB ONE (18:50)
[2024-09-09 19:15] LABS: BASO% 0.2 % (0-3); EOS% 0.2 % (0-8); IMMATURE GRANULOCYTES 0.3 % (0.0-5.0); LYMPH% 5.5 % (15-41); MEAN CELL VOLUME 95.5 fL CALC (80.0-100.0); MEAN CORPUSCULAR HGB 30.6 pG CALC (26.0-32.0); MEAN CORPUSCULAR HGB CONC 32.1 g/dL CAL (32.0-36.0); MONO% 10.3 % (2-13); NEUT# 13.16 thou/uL (2.00-7.15); NEUT% 83.5 % (42-76); RED BLOOD COUNT 3.33 mill/uL (4.20-5.60); RED CELL DISTRI WIDTH 13.1 % (11.5-15.5)
[2024-09-09 19:16] LABS: HEMATOCRIT 31.8 % (37.0-47.0); HEMOGLOBIN 10.2 g/dl (12.0-16.0)
[2024-09-09] MEDS ORDERED: methylPREDNISolone SODIUM SUCC 125 MG/2 ML SDV IV ONE (19:20)
[2024-09-09 19:26] LABS: ALBUMIN 3.9 g/dL (3.2-5.0); BILIRUBIN, TOTAL 0.9 mg/dL (0.02-1.3); CREATININE 1.7 mg/dL (0.5-1.0); POTASSIUM 4.2 mmol/l (3.5-5.1); TOTAL PROTEIN 6.8 g/dL (6.3-8.2)
[2024-09-09] MEDS ORDERED: Heparin SODIUM (Porcine) 5,000 UNITS/ML SDV IV ONE (20:05)
[2024-09-09] MEDS ORDERED: NITROGLYCERIN 2% OINT UD 1 GM/PAK TD ONE (20:05)
[2024-09-09] MEDS ORDERED: ASPIRIN 81 MG/TAB PO ONE (20:05)
[2024-09-09] MEDS ORDERED: Heparin SODIUM (Porcine) 500 ML IV ONE (20:05)
[2024-09-09] MEDS ORDERED: MORPHINE SULFATE 4 MG/ML VIAL IV ONE (20:30)
[2024-09-09 20:48] LABS: ACT PARTIAL THROMBO TIME 30.3 SECONDS (20.0-32.5); INTERNATIONAL NORMALIZED RATIO 1.1 RATIO (0.7-1.3)
[2024-09-09 20:49] LABS: PROTHROMBIN TIME 11.5 SECONDS (9.0-12.5)
[2024-09-09] MEDS ORDERED: DOXYCYCLINE HYCLATE 100 MG in SODIUM CHLORIDE 0.9% 100 ML IV ONE (21:10)
== END 2024-09-09 22:42 | disposition short-term general hospital (02) | DRG 282 ==
LOC: ED 18:36
PROVIDERS: Family Medicine
DX: I21.4 Non-ST elevation (NSTEMI) myocardial infarction (principal); J20.9 Acute bronchitis, unspecified; I10 Essential (primary) hypertension; E11.9 Type 2 diabetes mellitus without complications; F17.210 Nicotine dependence, cigarettes, uncomplicated; Z86.73 Personal history of transient ischemic attack (TIA), and cerebral infarction without residual deficits; Z95.5 Presence of coronary angioplasty implant and graft; Z20.822 Contact with and (suspected) exposure to COVID-19
CPT/HCPCS: J1644